=== PATIENT | male | born 1975 | race Caucasian/White ===

== ENCOUNTER 2018-02-14 02:37 | Emergency (ER) | payer OTHER ==
[2018-02-14 02:52] LABS: BASOPHIL (%) 0.5 % (0-1); BASOPHIL COUNT 0.1 K/uL (0-0.1); EOSINOPHIL (%) 0.4 % (0-5); HEMATOCRIT 46.6 % (38.0-50.0); HEMOGLOBIN 16.5 G/DL (12.5-16.6); IMMATURE GRANULOCYTE (%) 0.4 % (0.0-0.7); LYMPHOCYTE (%) 23.5 % (15-42); LYMPHOCYTE COUNT 2.6 K/uL (1.0-2.8); MCHC 35.4 G/DL (30.0-36.0); MCV 84.7 FL (86-99); MONOCYTE (%) 3.8 % (3-12); MONOCYTE COUNT 0.4 K/uL (0-0.8); NEUTROPHIL (%) 71.4 % (45-76); PLATELET COUNT 326 K/uL (156-360); RBC DIS.WIDTH-CV 13.5 % (11.8-14.6); RBC DIS.WIDTH-SD 41.8 % (39-53); WHITE BLOOD COUNT 11.2 K/uL (4.1-10.2)
[2018-02-14 03:06] LABS: AMYLASE 59 IU/L (1-118); CHLORIDE 101 mEq/L (99-109); POTASSIUM 2.8 mEq/L (3.7-5.4); SODIUM 143 mEq/L (136-147)
[2018-02-14 03:08] LABS: GLUCOSE 108 mg/dL (70-99)
[2018-02-14 03:11] LABS: SERUM ETHYL ALCOHOL 177 mg/dL
[2018-02-14 03:12] LABS: CREATININE 1.3 mg/dL (0.6-1.3)
[2018-02-14 03:13] LABS: UREA NITROGEN (BUN) 15 mg/dL (9-23)
[2018-02-14 03:15] LABS: LIPASE 23 U/L (1.0-51.0)
[2018-02-14 03:27] LABS: GFR ESTIMATE (CALCULATED) > 59 mL/min/ (58.99-99999)
[2018-02-14 03:56] LABS: APPEARANCE CLEAR ((CLEAR)); BILIRUBIN NEGATIVE; BLOOD SMALL; COLOR STRAW ((YELLOW)); GLUCOSE (STRIP) NEGATIVE; KETONES NEGATIVE; LEUKOCYTES NEGATIVE; NITRITE NEGATIVE; PROTEIN (STRIP) 30; SPECIFIC GRAVITY 1.005 (1.000-1.030); UROBILINOGEN 0.2 MG/DL (0.2-1.0)
[2018-02-14 04:01] LABS: BACTERIA RARE /HPF; EPITHELIAL CELLS NONE SEEN /HPF; MUCUS NONE SEEN /LPF; RED BLOOD CELLS 0-5 /HPF (0-5); UCUL ADDED? NO; WHITE BLOOD CELLS 0-5 /HPF (0-5)
[2018-02-14 04:12] LABS: AMPHETAMINE NEGATIVE (500 ng/mL); BARBITURATES NEGATIVE (200 ng/mL); BENZODIAZEPINES NEGATIVE (150 ng/mL); BUPRENORPHINE NEGATIVE (10 ng/mL); COCAINE NEGATIVE (150 ng/mL); METHADONE NEGATIVE (200 ng/mL); METHAMPHETAMINE NEGATIVE (500 ng/mL); OPIATES (MORPHINE) NEGATIVE (100 ng/mL); OXYCODONE NEGATIVE (100 ng/mL); PHENCYCLIDINE NEGATIVE (25 ng/mL); PROPOXYPHENE NEGATIVE (300 ng/mL); THC CANNABINOIDS PRESUMPTIVE POSITIVE (50 ng/mL); TRICYCLIC ANTIDEPRESSANTS NEGATIVE (300 ng/mL)
== END 2018-02-14 05:42 | disposition home or self-care (01) ==
LOC: TRA
PROVIDERS: Emergency Medicine
DX: S01.511A Laceration without foreign body of lip, initial encounter (principal); S02.5XXA Fracture of tooth (traumatic), initial encounter for closed fracture; V49.40XA Driver injured in collision with unspecified motor vehicles in traffic accident, initial encounter; Y92.410 Unspecified street and highway as the place of occurrence of the external cause; E87.6 Hypokalemia
CPT/HCPCS: 70450; 70486; 71045; 71260; 72125; 72170; 73080; 74177; 80048; 81003; 82150; 83690; 84999; 85025; 86850; 86900; 86901; 99281; 99285; G0480